=== PATIENT | female | born 1945 | race Caucasian/White ===

== ENCOUNTER → 2020-02-20 | Outpatient (CLI) | payer MEDICARE ==
[~2020-02-20] MED LIST: AMIODARONE HYD200 MG PO; LEVOXYL88 MCG PO; LIPITOR40 MG PO
== END | disposition home or self-care (01) ==
LOC: COVID19 01-24 00:18
DX: Z01.818 Encounter for other preprocedural examination (principal); Z11.59 Encounter for screening for other viral diseases

== ENCOUNTER → 2020-02-25 | Day surgery (SDC) | payer MEDICARE ==
[~2020-02-25] VITALS: Ht 167.6 cm; Wt 68.0 kg
[2020-02-25 06:46] VITALS: BP 172/72
[2020-02-25 07:53] VITALS: BP 110/37
[2020-02-25 08:05] VITALS: BP 113/42
[2020-02-25 08:23] VITALS: BP 127/52
== END | disposition home or self-care (01) ==
LOC: SDC 01-28 12:30
DX: Z12.11 Encounter for screening for malignant neoplasm of colon (principal); I10 Essential (primary) hypertension; K63.5 Polyp of colon; K57.30 Diverticulosis of large intestine without perforation or abscess without bleeding; Z87.891 Personal history of nicotine dependence; Z98.890 Other specified postprocedural states; Z79.899 Other long term (current) drug therapy